=== PATIENT | female | born 1980 | race Two or more races ===

== ENCOUNTER 2016-03-10 07:47 | Emergency (ER) | payer MEDICAID ==
[~2016-03-10] VITALS: Ht 162.6 cm; Wt 59.0 kg
[2016-03-10 07:47] VITALS: BP 116/66
== END 2016-03-10 08:50 | disposition home or self-care (01) ==
LOC: ER 07:52
DX: B96.81 Helicobacter pylori [H. pylori] as the cause of diseases classified elsewhere (principal); R10.13 Epigastric pain
CPT/HCPCS: 99283; A4606; Z7610

== ENCOUNTER 2016-05-03 20:16 | Emergency (ER) | payer SELFPAY ==
[~2016-05-03] VITALS: Ht 165.1 cm; Wt 77.1 kg
[2016-05-03 20:52] LABS: BASOPHILS # (AUTO) 0.1 /CMM (0.0-0.2); BASOPHILS % (AUTO) 0.8 % (0.0-2.0); DIFF TOTAL % 100 %; EOSINOPHILS # (AUTO) 0.2 /CMM (0.0-0.7); HEMATOCRIT 42 % (33-45); MEAN CORPUSCULAR HEMOGLOBIN 32 PG (26.0-33.0); MEAN CORPUSCULAR HGB CONC 33 g/dl (31.0-36.0); MEAN CORPUSCULAR VOLUME 94 fL (82-100); MONOCYTES # (AUTO) 0.7 /CMM (0.1-1.30); NEUTROPHILS # (AUTO) 3.8 /CMM (1.8-8.9); NEUTROPHILS % (AUTO) 49.2 % (43.0-81.0); PLATELET COUNT (AUTO) 261 /CMM (150-450); RED BLOOD CELL COUNT(AUTO) 4.46 MIL/uL (4.0-5.2); WHITE BLOOD COUNT (AUTO) 7.8 K/uL (4.3-11.0)
[2016-05-03 21:00] LABS: ANION GAP 11 (5-14); CALCIUM, SERUM 8.3 mg/dL (8.5-10.1); CARBON DIOXIDE 29 mmol/L (21-32); CHLORIDE 105 mmol/L (98-107); GFR 64 mL/min (>60); GLUCOSE 101 mg/dL (74-106); POTASSIUM 3.8 mmol/L (3.5-5.1); SODIUM SERUM 142 mmol/L (136-145); UREA NITROGEN, BLOOD 18 mg/dL (7-18)
[2016-05-03 21:09] LABS: TROPONIN I < 0.017 ng/mL (0.00-0.056)
[2016-05-03 21:16] LABS: INR 0.97 (0.87-1.13); PROTHROMBIN TIME 10.5 SECS (9.5-12.7)
[2016-05-03 21:34] VITALS: BP 136/76
== END 2016-05-03 21:37 | disposition home or self-care (01) ==
LOC: ER 20:18
DX: R07.9 Chest pain, unspecified (principal)
CPT/HCPCS: 36415; 71010; 80048; 84484; 85025; 85378; 85730; 93005; 99285; A4606; Z7610

== ENCOUNTER 2017-03-13 04:58 | Emergency (ER) | payer MEDICAID ==
[~2017-03-13] VITALS: Ht 162.6 cm; Wt 81.6 kg
[2017-03-13 05:00] VITALS: BP 113/68
[2017-03-13] MEDS ORDERED: KETOROLAC TROMETHAMINE INJ 60 MG/2 ML VIAL IM ONE (05:30)
[2017-03-13] MEDS ORDERED: KETOROLAC TROMETHAMINE INJ 30 MG/ML VIAL ONE (05:45)
== END 2017-03-13 07:20 | disposition home or self-care (01) ==
LOC: ER 05:01
DX: M25.511 Pain in right shoulder (principal); M75.31 Calcific tendinitis of right shoulder
CPT/HCPCS: 73030-TC; A4606; J1885; Z7610

== ENCOUNTER 2017-06-26 01:20 | Emergency (ER) | payer MEDICAID ==
[~2017-06-26] VITALS: Ht 154.9 cm; Wt 82.1 kg
[2017-06-26 01:28] VITALS: BP 114/59
== END 2017-06-26 02:28 | disposition home or self-care (01) ==
LOC: ER 01:20
DX: O99.89 Other specified diseases and conditions complicating pregnancy, childbirth and the puerperium (principal); M25.532 Pain in left wrist; Z3A.15 15 weeks gestation of pregnancy
CPT/HCPCS: 82962-TC; A4606; Z7610

== ENCOUNTER 2017-11-02 01:01 | Emergency (ER) | payer MEDICAID ==
[~2017-11-02] VITALS: Ht 165.1 cm; Wt 81.6 kg
[2017-11-02 01:23] VITALS: BP 135/78
--- NOTE | 2017-11-02 02:21 | NUR ---
STATES "I WAS EMOTIONAL BECAUSE I JUST CAME FROM MY SISTER'S BUT NOW I FEEL MORE STABLE AND WANNA GO HOME NOW"
== END 2017-11-02 02:24 | disposition left against medical advice (07) ==
LOC: ER 01:05
DX: Z53.21 Procedure and treatment not carried out due to patient leaving prior to being seen by health care provider (principal)
CPT/HCPCS: A4606; Z7610

== ENCOUNTER 2020-10-27 14:49 | Emergency (ER) | payer MEDICAID ==
[~2020-10-27] VITALS: Ht 167.6 cm; Wt 88.5 kg
[2020-10-27 15:15] VITALS: BP 128/81
--- NOTE | 2020-10-27 15:21 | NUR ---
THE PATIENT BIBS FOR C/O R EYE TWITCHING X 4 HRS. DENIES CHANGE IN VISION. NO EYE DISCHARGE NOTED. NO EYE REDNESS. WILL CONTINUE TO MONITOR THE PATIENT.
[2020-10-27 16:16] LABS: BASOPHILS % (AUTO) 0.6 % (0.0-2.0); HEMATOCRIT 43 % (33-45); HEMOGLOBIN 14.2 g/dL (11.5-14.8); LYMPHOCYTES # (AUTO) 1.7 K/uL (0.8-4.8); LYMPHOCYTES % (AUTO) 22.5 % (20.0-44.0); MEAN CORPUSCULAR HGB CONC 33 g/dl (31.0-36.0); MEAN CORPUSCULAR VOLUME 92 fL (82-100); MONOCYTES # (AUTO) 0.5 K/uL (0.1-1.30); MONOCYTES % (AUTO) 6.2 % (2.0-12.0); NEUTROPHILS # (AUTO) 5.3 K/uL (1.8-8.9); NEUTROPHILS % (AUTO) 69.7 % (43.0-81.0); PLATELET COUNT (AUTO) 290 K/uL (150-450); RED BLOOD CELL COUNT(AUTO) 4.68 MIL/uL (4.0-5.2); WHITE BLOOD COUNT (AUTO) 7.6 K/uL (4.3-11.0)
[2020-10-27 17:21] LABS: CALCIUM, SERUM 8.8 mg/dL (8.5-10.1); CREATININE 0.8 mg/dL (0.6-1.3)
--- NOTE | 2020-10-27 17:27 | NUR ---
Patient discharged to home in stable condition. Written and verbal after care instructions given. Patient verbalizes understanding of instruction.
[2020-10-27 18:20] LABS: MAGNESIUM 2.4 mg/dL (1.8-2.4)
== END 2020-10-27 17:28 | disposition home or self-care (01) ==
LOC: ER 14:49
DX: R25.3 Fasciculation (principal); H57.89 Other specified disorders of eye and adnexa; M06.9 Rheumatoid arthritis, unspecified
CPT/HCPCS: 36415; 80048-TC; 83735-TC; 85025-TC

== ENCOUNTER 2020-11-17 06:49 | Emergency (ER) | payer MEDICAID, OTHER ==
[~2020-11-17] VITALS: Ht 170.2 cm; Wt 92.5 kg
--- NOTE | 2020-11-17 07:10 | NUR ---
patient came in to the er c/o dizziness. On room air, breathing evenly and unlabored. Connected to the monitor and pulse ox. kept comfortable, will continue to monitor accordingly.
[2020-11-17] MEDS ORDERED: MECLIZINE HCL 25 MG TABLET ONE (07:15)
[2020-11-17] MEDS ORDERED: ONDANSETRON HCL/PF 4 MG/2 ML VIAL ONE (07:15)
[2020-11-17] MEDS ORDERED: IV NS 0.9% 1,000 ML BAG IV ONE (07:30)
[2020-11-17] MEDS ORDERED: MECLIZINE HCL 12.5 MG TABLET PO ONE (07:30)
[2020-11-17] MEDS ORDERED: ONDANSETRON HCL/PF 4 MG/2 ML VIAL IVP ONE (07:30)
[2020-11-17 07:39] LABS: BASOPHILS % (AUTO) 0.7 % (0.0-2.0); EOSINOPHILS % (AUTO) 2.2 % (0.0-6.0); HEMATOCRIT 42 % (33-45); HEMOGLOBIN 14.3 g/dL (11.5-14.8); LYMPHOCYTES # (AUTO) 2.1 K/uL (0.8-4.8); MEAN CORPUSCULAR HGB CONC 34 g/dl (31.0-36.0); MEAN CORPUSCULAR VOLUME 91 fL (82-100); MONOCYTES # (AUTO) 0.7 K/uL (0.1-1.30); MONOCYTES % (AUTO) 11.4 % (2.0-12.0); NEUTROPHILS % (AUTO) 50.7 % (43.0-81.0); PLATELET COUNT (AUTO) 292 K/uL (150-450); RED BLOOD CELL COUNT(AUTO) 4.63 MIL/uL (4.0-5.2)
[2020-11-17 07:43] LABS: CALCIUM, SERUM 8.3 mg/dL (8.5-10.1); CREATININE 0.8 mg/dL (0.6-1.3); POTASSIUM 3.7 mmol/L (3.5-5.1)
[2020-11-17] MEDS ORDERED: MECL-159 PO (08:12)
[2020-11-17] MEDS ORDERED: ONDA4TAB5 PO (08:12)
[2020-11-17 08:57] VITALS: BP 111/66
--- NOTE | 2020-11-17 08:57 | NUR ---
Patient discharged to home in stable condition. Written and verbal after care instructions given. Patient verbalizes understanding of instruction.IV removed. Catheter intact and site benign. Pressure and 4x4 applied to site. No bleeding noted.
== END 2020-11-17 08:57 | disposition home or self-care (01) ==
LOC: ER 06:53
DX: R42 Dizziness and giddiness (principal); R11.0 Nausea; M06.9 Rheumatoid arthritis, unspecified; Z79.899 Other long term (current) drug therapy
CPT/HCPCS: 36415; 71045; 80048; 82962; 85025; 93005; 96361; 96374; 99285; J2405; J7030; J8597